=== PATIENT | female | born 1975 | race Two or more races ===

== ENCOUNTER 2016-10-13 19:12 | Emergency (ER) | payer BC ==
[~2016-10-13] VITALS: Ht 162.6 cm; Wt 83.5 kg
[~2016-10-13 19:12] MED LIST: UNK INSULIN; [UNRECOGNIZED DRUG - REMARK]
[2016-10-13 21:10] VITALS: BP 135/86
== END 2016-10-13 21:11 | disposition home or self-care (01) ==
LOC: ER 19:14
DX: E11.649 Type 2 diabetes mellitus with hypoglycemia without coma (principal); F17.200 Nicotine dependence, unspecified, uncomplicated; Z90.49 Acquired absence of other specified parts of digestive tract
CPT/HCPCS: 82962 ×2; 99282; A4606; Z7610

== ENCOUNTER 2017-11-11 12:58 | Emergency (ER) | payer BC ==
[~2017-11-11] VITALS: Ht 157.5 cm; Wt 68.0 kg
--- NOTE | 2017-11-11 13:10 | NUR ---
BIBRA 40 FROM HOME FOR SYNCOPAL EPISODE, UNWITNESSED, [id number]. PT AAOX3. VSS. SEEN BY MD FOR EVAL. IV ACCESS NIGHT SHIFT. SAFETY AND COMFORT MEASURES PROVIDED. WILL MONITOR.
[2017-11-11] MEDS ORDERED: IV NS 0.9% 500 ML BAG IV ONE (13:30)
[2017-11-11 13:39] LABS: BASOPHILS % (AUTO) 0.5 % (0.0-2.0); EOSINOPHILS # (AUTO) 0.1 /CMM (0.0-0.7); EOSINOPHILS % (AUTO) 0.7 % (0.0-6.0); HEMATOCRIT 48 % (33-45); LYMPHOCYTES # (AUTO) 1.1 /CMM (0.8-4.8); LYMPHOCYTES % (AUTO) 14.7 % (20.0-44.0); MEAN CORPUSCULAR HEMOGLOBIN 30 PG (26.0-33.0); MEAN CORPUSCULAR HGB CONC 35 g/dl (31.0-36.0); MEAN CORPUSCULAR VOLUME 84 fL (82-100); MONOCYTES # (AUTO) 0.3 /CMM (0.1-1.30); NEUTROPHILS # (AUTO) 5.9 /CMM (1.8-8.9); NEUTROPHILS % (AUTO) 80.1 % (43.0-81.0); PLATELET COUNT (AUTO) 211 /CMM (150-450); RDW COEFFICIENT OF VARIATION 12.5 (11.5-15.0); RED BLOOD CELL COUNT(AUTO) 5.77 MIL/uL (4.0-5.2); WHITE BLOOD COUNT (AUTO) 7.4 K/uL (4.3-11.0)
[2017-11-11 13:43] LABS: CALCIUM, SERUM 8.8 mg/dL (8.5-10.1); CARBON DIOXIDE 25 mmol/L (21-32); CHLORIDE 105 mmol/L (98-107); CREATININE 0.7 mg/dL (0.6-1.3); GLUCOSE 197 mg/dL (74-106); POTASSIUM 3.8 mmol/L (3.5-5.1); SODIUM SERUM 140 mmol/L (136-145); UREA NITROGEN, BLOOD 11 mg/dL (7-18)
[2017-11-11 13:49] LABS: ALANINE AMINOTRANSFERASE 15 U/L (12-78); ALBUMIN 3.7 g/dL (3.4-5.0); ALKALINE PHOSPHATASE 61 U/L (46-116); ASPARTATE AMINOTRANSFERASE 13 U/L (15-37); BILIRUBIN,DIRECT 0.2 mg/dL (0.0-0.2); BILIRUBIN,TOTAL 0.6 mg/dL (0.2-1.0)
[2017-11-11 13:51] LABS: TROPONIN I < 0.017 ng/mL (0.00-0.056)
--- NOTE | 2017-11-11 15:00 | NUR ---
IV removed. Catheter intact and site benign. Pressure and 4x4 applied to site. No bleeding noted.
[2017-11-11] MEDS ORDERED: ACETAMINOPHEN 650 MG/20.3 ML UDC ONE (15:13)
--- NOTE | 2017-11-11 15:20 | NUR ---
Patient discharged to home in stable condition. Written and verbal after care instructions given. Patient verbalizes understanding of instruction.
[2017-11-11] MEDS ORDERED: ACETAMINOPHEN 650 MG/20.3 ML UDC PO ONE (15:30)
[2017-11-11 15:45] VITALS: BP 128/81
== END 2017-11-11 15:46 | disposition home or self-care (01) ==
LOC: ER 13:00
DX: R55 Syncope and collapse (principal); E11.9 Type 2 diabetes mellitus without complications; F17.200 Nicotine dependence, unspecified, uncomplicated
CPT/HCPCS: 36415; 70450; 71045; 72040; 72100; 80048; 80076; 84484; 84703; 85025; 93005; 99285; A4606; J7040; Z7610

== ENCOUNTER 2018-09-25 17:48 | Emergency (ER) | payer BC ==
[~2018-09-25] VITALS: Ht 170.2 cm; Wt 61.2 kg
[2018-09-25 17:48] VITALS: BP 128/89
--- NOTE | 2018-09-25 19:09 | NUR ---
Patient discharged to home in stable condition. Written and verbal after care instructions given. Patient verbalizes understanding of instruction.
== END 2018-09-25 19:10 | disposition home or self-care (01) ==
LOC: ER 17:50
DX: R21 Rash and other nonspecific skin eruption (principal); E11.9 Type 2 diabetes mellitus without complications; F17.200 Nicotine dependence, unspecified, uncomplicated
CPT/HCPCS: 99283; A4606; Z7610

== ENCOUNTER 2019-03-28 20:05 | Emergency (ER) | payer BC, MEDICAID ==
[~2019-03-28] VITALS: Ht 162.6 cm; Wt 63.5 kg
--- NOTE | 2019-03-28 20:15 | NUR ---
BIBS FOR C/C R FOOT PAIN . PT HAD STEP ION A PIECE OF GLASS 2 WKS AGO AND WAS SEEN IN ER AFTER THAT. X RAY WAS DONE AND SHE WAS TOLD THAT THERE IS NO FORIGN BODY LEFT THERE,. PT WAS ALSO SEEN IN [facility] AND WAS TOLD TO F/U W/ A SALES AND SERVICE ADVISOR.
[2019-03-28] MEDS ORDERED: KETOROLAC TROMETHAMINE INJ 60 MG/2 ML VIAL IM ONE (21:30)
[2019-03-28] MEDS ORDERED: KETOROLAC TROMETHAMINE INJ 30 MG/ML VIAL ONE (21:30)
[2019-03-28 21:35] VITALS: BP 119/77
--- NOTE | 2019-03-28 21:35 | NUR ---
Patient discharged to home in stable condition. Rx and Written and verbal after care instructions given. Patient verbalizes understanding of instruction.
== END 2019-03-28 21:36 | disposition home or self-care (01) ==
LOC: ER 20:07
DX: S90.851A Superficial foreign body, right foot, initial encounter (principal); M79.671 Pain in right foot; E11.9 Type 2 diabetes mellitus without complications; F17.200 Nicotine dependence, unspecified, uncomplicated; W45.8XXA Other foreign body or object entering through skin, initial encounter; Y93.89 Activity, other specified; Y92.89 Other specified places as the place of occurrence of the external cause; Y99.8 Other external cause status
CPT/HCPCS: 96372; 99283; A6402; J1885